=== PATIENT | male | born 1970 | race Caucasian/White ===

== ENCOUNTER 2016-11-14 18:01 | Observation (INO) | payer BC, OTHER ==
[2016-11-14] MEDS ORDERED: METOCLOPRAMIDE HCL 5 MG/ML VIAL IV ONE (18:23)
[2016-11-14] MEDS ORDERED: diphenhydrAMINE HCL 50 MG/ML VIAL IV ONE (18:23)
[2016-11-14] MEDS ORDERED: NORMAL SALINE 1,000 ML IV ONE ×2 (18:23→22:13)
[2016-11-14] MEDS ORDERED: METOCLOPRAMIDE HCL 5 MG/ML VIAL ONE (18:31)
--- NOTE | 2016-11-14 18:31 | ERNOTE ---
<Jean Marie Buchanan - Last Filed: 11/14/16 19:24> Abdominal HPI - General Chief Complaint: Abdominal Pain Time Seen by Provider: 11/14/16 18:19 Source: patient, family Exam Limitations: no limitations - Immun/Allergies/Home Medications Immunizatons: IMMUNIZATION HX Immunizations Up to Date Yes Allergies/Adverse Reactions: Allergies morphine Allergy (Unknown, Verified 11/14/16 18:16) Hives Home Medications: HOME MEDICATIONS Lisinopril/Hydrochlorothiazide [Lisinopril-Hctz 20-12.5 mg Tab] 1 each PO DAILY 11/14/16 [Last Taken Unknown] Ranitidine HCl [Zantac] 150 mg PO BID 11/14/16 [Last Taken Unknown] - History of Present Illness Narrative: Patient presents with generalized abdominal pain although the focus appears to be dropping into the lower abdomen at this juncture. Patient states the onset of symptoms was yesterday. Describes it as moderately to severe in intensity and somewhat cramping. Denies any nausea vomiting or diarrhea. Further states he has never had any abdominal surgery of any kind Timing: constant, getting worse Quality: moderate Activities at Onset: none Associated Symptoms: Present: denies symptoms Prior Abdominal Problems: Present: none Review of Systems - Review of Systems Constitutional: Present: See HPI EYE: Present: no symptoms reported ENT: Present: no symptoms reported Respiratory: Present: no symptoms reported Cardiology: Present: no symptoms reported Gastrointestinal/Abdominal: Present: See HPI, abdominal pain Genitourinary: Present: no symptoms reported Musculoskeletal: Present: no symptoms reported Skin: Present: no symptoms reported Neurological: Present: no symptoms reported Endocrine: Present: no symptoms reported Hematologic/Lymphatic: Present: no symptoms reported Psych: Present: no symptoms reported - Patient's Past Medical History Patient History - Medical: No pertinent hx Patient History - Cardiac/Respiratory: Hypertension Patient History - Cancer: No Hx of Cancer Patient History - Surgical Procedures: Back Surgery - Social History Living Situations: home Psych History: No pertinent hx Smoking Status: Never smoker Patient requests Smoking Cessation Consult: No Initiate information on Smoking Cessation: No - Immunizations Immunizations Up to Date: Yes Physical Exam - Physical Exam General Appearance: Present: wd/wn, alert, moderate distress Eye Exam: Normal inspection: bilateral, PERRL: bilateral Ears, Nose, Throat: Present: normal ENT inspection, H, normal pharynx Neck: Present: normal inspection, nontender Respiratory: Present: no respiratory distress, normal breath sounds, no accessory muscle use, chest nontender, lungs clear Cardiovascular/Chest: Present: regular rate, rhythm, no murmur, normal peripheral pulses Gastrointestinal/Abdominal: Present: soft, no organomegaly, tenderness, abnormal bowel sounds - diminished Rectal Exam: Present: deferred Back Exam: Present: normal inspection, normal range of motion Extremity Exam: Present: normal inspection, non-tender, no edema, normal range of motion Neurological Exam: Present: alert, oriented, normal mood/affect Skin Exam: Present: normal color, warm/dry Lymphatic Exam: Present: no adenopathy ED Progress - Vital Signs Vital Signs: Vital Signs 11/14/16 18:11 Temperature 36.8 C Pulse Rate 97 Respiratory 20 Rate Blood Pressure 143/92 O2 Sat by Pulse 97 Oximetry - Progress/Reassessment Chief Complaint: Abdominal Pain - Transfer of Care Physician Sign Out: Jean Marie Buchanan Receiving Physician: Danae Hernández Departure - Departure Clinical Impression: Colitis Abdominal pain Qualifiers: Abdominal location: generalized Qualified Code(s): R10.84 - Generalized abdominal pain Disposition: [facility] Condition: Good <Danae Hernández - Last Filed: 11/14/16 23:20> Abdominal HPI - Immun/Allergies/Home Medications Immunizatons: IMMUNIZATION HX Immunizations Up to Date Yes - Family History Mother Family History - Cancer: Colon Father Family History - Cardiac/Respiratory: Myocardial Infarction ED Progress - Results and Orders Patient's Lab Results:: I have reviewed the patient's lab results. - Vital Signs Patient's Vital Signs:: I have reviewed the patient's vital signs. Vital Signs: Vital Signs 11/14/16 18:11 Temperature 36.8 C Pulse Rate 97 Respiratory 20 Rate Blood Pressure 143/92 O2 Sat by Pulse 97 Oximetry - X-Ray X-Ray #1 X-Ray: abdomen - stool retention, non specific bowel gas pattern Interpretation: Reviewed by me - CT/Ultrasound CT/Ultrasound Narrative: CT abdomen and pelvis: non specific bowel wall thickening in duodenum and terminal ileum, pancreatic findings c/w pancreatitis, appendix not visualized - Progress/Reassessment Progress Note-Subjective: 11/14/16 19:59 patient has minimal pain, tolerating po contrast 11/14/16 21:45 discussed results with patient and 06/21/17 21:[address] Brooks, suggested admission with IV fluids, start cipro and flagyl , repeat labs in the morning 11/14/16 22:00 discussed plan with patient , agrees to admission 11/14/16 22:05 discussed with Unique Marte,rudiay to admit
[2016-11-14 18:42] LABS: Hematocrit 42.4 % (42.0-52.0); Hemoglobin 14.6 gm/dL (13.5-18.0); Mean Cell Volume 88.9 fl (78-100); Mean Corpuscular Hemoglobin 30.6 pg (27-31); Mean Corpuscular Hgb Conc 34.4 g/dl (32-36); Mean Platelet Volume 9.4 fl (6.0-9.5); Neutrophil # 15.7 K/mm3 (1.3-6.0); Neutrophil % 80.9 % (42-75.0); Platelet Count 253 K/mm3 (150-450); Red Blood Count 4.77 M/mm3 (4.7-6.0); Red Cell Distribution Width 12.9 % (11.5-14.0); White Blood Count 19.5 K/mm3 (4.0-10.5)
[2016-11-14 18:52] LABS: Urine Bilirubin Negative (NEGATIVE); Urine Blood Negative /ul (NEGATIVE); Urine Ketone 5 mg/dL (NEGATIVE); Urine Nitrite Negative (NEGATIVE); Urine Protein 15 mg/dL (NEGATIVE); Urine Specific Gravity >=1.030 SP.GR. (1.005-1.030); Urine Urobilinogen Normal (NORMAL)
[2016-11-14 18:56] LABS: Anion Gap 16.2 mmol/L (6.8-13.8); BUN/Creatinine Ratio 15.2 (9.0-21.6); Bilirubin, Total 0.8 mg/dL (0.0-1.1); Ca. Corrected For Albumin 9.3 mg/dL (8.4-10.2); Calcium * 9.6 mg/dL (7.9-10.9); Carbon Dioxide 24.3 mmol/L (24-32.6); Magnesium 1.8 mg/dL (1.2-2.8); Potassium 3.5 mmol/L (3.4-4.6); Total Protein 8.5 gm/dL (6.2-8.2)
[2016-11-14 19:10] LABS: Urine Appearance Clear; Urine Bacteria 1+; Urine Color Yellow; Urine Mucus Many - 3+; Urine RBC 0-5 /hpf (0-5); Urine WBC 0-5 /hpf (0-5)
[2016-11-14] MEDS ORDERED: DIATRIZOATE MEGLU/DIATRIZO SOD 30 ML BTL PO ONE (19:24)
[2016-11-14] MEDS ORDERED: DIATRIZOATE MEGLU/DIATRIZO SOD 30 ML BTL ONE ×2 (19:25→19:28)
[2016-11-14] MEDS ORDERED: PROMETHAZINE HCL 5 MG in DEXTROSE 5 % IN WATER 50 ML IV PRN ×2 (22:12)
[2016-11-14] MEDS ORDERED: KETOROLAC TROMETHAMINE 30 MG/ML VIAL IV PRN (22:12)
[2016-11-14] MEDS ORDERED: ACETAMINOPHEN 500 MG TABLET PO PRN (22:12)
[2016-11-14] MEDS ORDERED: ONDANSETRON HCL/PF 2 MG/ML VIAL IV PRN (22:12)
[2016-11-14] MEDS ORDERED: HYDROmorphone HCL 1 MG/ML DISP.SYRIN IV PRN ×2 (23:05→23:08)
[2016-11-14] MEDS ORDERED: PROMETHAZINE HCL 12.5 MG in DEXTROSE 5 % IN WATER 50 ML IV ONE ×2 (23:05)
--- NOTE | 2016-11-14 23:05 | HP ---
Chief Complaint - Chief Complaint Date of Service: 11/14/16 Time of Service: 23:05 Chief Complaint: abdominal pain History of Present Illness: Gabriel is a 45 year old male with a PMH of HTN and GERD who presented to the ER with c/o abdominal pain x1 day. denies n/v/d. denies prior history of diverticulitis or colitis. denies any abdominal surgeries or procedures. ER eval revealed WBC 19.5 with 80.9 neutrophils. ab xray showed stool retention and non-specific bowel gas pattern. CT ab/pelvis showed non specific bowel wall thickening in duodenum and terminal ileum, pancreatic findings c/w pancreatitis, appendix not visualized - although lipase wnl. ERP spoke with gen surgery who recommended admission for IV fluids, start IV cipro/flagyl and recheck labs in am. Patient to be admitted for abdominal pain pending further work up. - Patient's Past Medical History Patient History - Medical: GERD - diagnosed 1 month ago (09/2016) - on zantac bid. Patient History - Cardiac/Respiratory: Hypertension - for past 10 years - on lisinopril/HCTZ Patient History - Cancer: No Hx of Cancer Patient History - Surgical Procedures: Back Surgery - Family History Mother Family History - Medical: No pertinent hx Family History - Cardiac/Respiratory: No pertinent hx Family History - Cancer: Colon Father Family History - Medical: No pertinent hx Family History - Cardiac/Respiratory: Myocardial Infarction - Social History Living Situations: home Psych History: No pertinent hx Smoking Status: Never smoker Patient requests Smoking Cessation Consult: No Initiate information on Smoking Cessation: No Alcohol Use: other - heavy etoh use 20 years ago for 5 years; current etoh use is 2-3 beers per 1-2 months at maximum per patient Drug Use: none - Immunizations Immunizations Up to Date: Yes Review Of Systems (GEN) - Review of Systems Generalized/Overall Review: Present: Chills, Malaise, Fatigue. Absent: Fever EENTM: Present: No Symptoms Reported Respiratory: Present: No Symptoms Reported Cardiac: Present: Chest Pain - describes as more of reflux-like symptoms Abdominal: Present: Abdominal Pain. Absent: Nausea, Vomiting, Hematemesis, Constipation, Diarrhea, Melena, Bright blood from rectum Genitourinary: Present: No Symptoms Reported Musculoskeletal: Present: No Symptoms Reported Neurological: Present: No Symptoms Reported Skin: Present: No Symptoms Reported Endocrine: Present: No Symptoms Reported Misc: All systems neg except as marked Allergies/Adverse Reactions: Allergies Allergy/AdvReac Type Severity Reaction Status Date / Time morphine Allergy Unknown Hives Verified 11/14/16 18:16 Home Medications: HOME MEDICATIONS Lisinopril/Hydrochlorothiazide [Lisinopril-Hctz 20-12.5 mg Tab] 1 each PO DAILY 11/14/16 [Last Taken 11/14/16] Ranitidine HCl [Zantac] 150 mg PO BID 11/14/16 [Last Taken 11/14/16] Exam - Exam Vital Signs: Vital Signs - Last Taken Temp 36.6 C 11/14/16 22:20 Pulse 92 11/14/16 22:20 Resp 16 11/14/16 22:20 BP 138/83 11/14/16 22:20 Pulse Ox 99 11/14/16 22:20 Constitutional: Present: Alert, Oriented x3, Cooperative, No distress ENT Exam: Present: hearing grossly normal Eye Exam: bilateral eye: normal inspection Neck: Present: full range of motion, supple Back Exam: Present: normal inspection, no vertebral tenderness Breasts: Present: Exam deferred Respiratory: Present: lungs clear, normal breath sounds, no respiratory distress Cardiovascular/Chest: Present: normal peripheral pulses, regular rate, rhythm, no JVD, no murmur Peripheral Pulses: dorsalis-pedis (R): 2+, dorsalis-pedis (L): 2+, radial (R): 2 +, radial (L): 2+ Abdomen: Present: soft, obese, tender - diffuse abdominal tenderness to palpation, worse on left side, guarding /Rectal: Present: Exam deferred Extremity: Present: non-tender, normal inspection, no pedal edema Skin Exam: Present: normal color, warm/dry, no cyanosis Diagnostic Studies: Laboratory Results Laboratory Tests 11/14/16 18:36 WBC 19.5 H Hgb 14.6 Hct 42.4 Plt Count 253 Neutrophils % 80.9 H Potassium 3.5 Creatinine 0.99 Lactic Acid, Venous 1.6 AST 18 ALT 38 Lipase 136 11/14/16 Technique: Abdominal series (4 views) Impression: Stool retention with a nonobstructed bowel gas pattern. Scattered colonic air-fluid levels; correlate for loose stools. 11/14/16 CT Abdomen and Pelvis with contrast IMPRESSION: Findings compatible with pancreatitis. No evidence of peripancreatic fluid collection. Bowel wall thickening involving the duodenum may be reactive to the pancreas. Nonspecific bowel wall thickening involving the terminal ileum. Correlate for an underlying infectious or inflammatory process. No evidence of bowel obstruction. Assessment/Plan - Narrative Narrative: Abdominal pain - colitis vs pancreatitis vs other etiology - Start antibiotics (wbc elevated with abdominal pain) - Cipro 400 mg iv q 12 hours - Day #1 - Flagyl 500 mg iv q 8 hours - Day #1 - Bowel rest for now - npo with ice chips prn - IV fluids: D5 NS with 20 KCl at 125 ml/hr. - Protonix 40 mg daily for GI protection given abdominal pain - IV daily ordered since patient is NPO. - Pain medications ordered - pt states has had dilaudid in the past and done ok - no toradol as it tends to irritate the gut - recheck labs in the am. - consult Dr Brooks for recommendations - done by ERP prior to admission HTN - Vital signs q 4 hours GERD - recently diagnosed within the last month - currently on zantac bid at home - place on protonix iv while npo. Code status: full code VTE: lovenox GI Proph: protonix iv. - Assessment/Plan (1) Abdominal pain Problem: Acute Qualifiers: Abdominal location: unspecified location Qualified Code(s): R10.9 - Unspecified abdominal pain (2) HTN (hypertension) Problem: Chronic Qualifiers: Hypertension type: essential hypertension Qualified Code(s): I10 - Essential (primary) hypertension (3) GERD (gastroesophageal reflux disease) Problem: Chronic Qualifiers: Esophagitis presence: esophagitis presence not specified Qualified Code(s) : K21.9 - Gastro-esophageal reflux disease without esophagitis
[2016-11-14] MEDS ORDERED: PROMETHAZINE HCL 12.5 MG in DEXTROSE 5 % IN WATER 50 ML IV PRN ×2 (23:06)
[2016-11-14] MEDS ORDERED: HYDROmorphone HCL 1 MG/ML DISP.SYRIN IV ONE (23:07)
[2016-11-14] MEDS ORDERED: diphenhydrAMINE HCL 50 MG/ML VIAL IV PRN (23:09)
[2016-11-14] MEDS ORDERED: PANTOPRAZOLE SODIUM 40 MG in NORMAL SALINE 100 ML IV SCH (23:15)
[2016-11-14] MEDS: POTASSIUM CHLORIDE 20 MEQ in DEXTROSE 5%-NORMAL SALINE 990 ML IV SCH (23:15)
[2016-11-14] MEDS: CIPROFLOXACIN LACTATE/D5W 400 MG/200 ML BAG IV SCH (23:25)
[2016-11-15] MEDS: metroNIDAZOLE/SODIUM CHLORIDE 500 MG/100 ML BAG IV SCH ×3 (00:40→14:29)
[2016-11-15 06:08] LABS: Hematocrit 36.5 % (42.0-52.0); Hemoglobin 12.4 gm/dL (13.5-18.0); Mean Cell Volume 90.1 fl (78-100); Mean Corpuscular Hemoglobin 30.6 pg (27-31); Mean Platelet Volume 9.4 fl (6.0-9.5); Neutrophil # 10.3 K/mm3 (1.3-6.0); Neutrophil % 71.7 % (42-75.0); Platelet Count 196 K/mm3 (150-450); Red Blood Count 4.05 M/mm3 (4.7-6.0); White Blood Count 14.3 K/mm3 (4.0-10.5)
[2016-11-15 06:11] LABS: Total Cells Counted 100
[2016-11-15 06:23] LABS: Albumin * 3.2 gm/dl (3.4-5.0); Anion Gap 13.6 mmol/L (6.8-13.8); BUN/Creatinine Ratio 13.6 (9.0-21.6); Bilirubin, Total 0.9 mg/dL (0.0-1.1); Ca. Corrected For Albumin 9.1 mg/dL (8.4-10.2); Calcium * 8.8 mg/dL (7.9-10.9); Carbon Dioxide 25.9 mmol/L (24-32.6); Potassium 3.5 mmol/L (3.4-4.6); Total Protein 7.2 gm/dL (6.2-8.2)
[2016-11-15 07:13] LABS: Eosinophil 1 % (0-3); Lymphocyte 11 % (20-51); Monocyte 9 % (0-9); Neutrophil 79 % (42-75); Neutrophil # 11.3 K/mm3 (1.3-6.0); Platelet Estimate Normal (NORMAL); RBC Morphology Normal (NORMAL)
[2016-11-15] MEDS ORDERED: HYDROCHLOROTHIAZIDE 12.5 MG CAPSULE PO SCH (09:00)
[2016-11-15] MEDS ORDERED: LISINOPRIL 20 MG TABLET PO SCH (09:00)
[2016-11-15] MEDS: CIPROFLOXACIN LACTATE/D5W 400 MG/200 ML BAG IV SCH (09:45)
[2016-11-15] MEDS: POTASSIUM CHLORIDE 20 MEQ in DEXTROSE 5%-NORMAL SALINE 990 ML IV SCH (12:51)
[2016-11-15 14:12] VITALS: BP 130/79
--- NOTE | 2016-11-15 16:15 | DS ---
(1) Abdominal pain Diagnosis(s): Etiology not determined. Problem: Resolved Qualifiers: Abdominal location: generalized Qualified Code(s): R10.84 - Generalized abdominal pain Description of Stay: He was kept at NPO status with IV Protonix and Cipro/Flagyl. Surgical consultation was obtained with findings of no peritoneal signs on exam or discrete findings. WBC decreased. ESR and CRP were elevated, however patient's pain resolved and he had multiple loose stools from the gastroview. Records from patient's recent EGD (esophagitis/gastritis, clotest negative) and normal colonoscopy (only fair prep) received and reviewed. Diet was advanced to regular which he tolerated without return of pain. Ambulated independently and desired discharge. Procedures Performed: none Discharge Disposition: Home self care Disposition: Home self-care Condition: Good Discharge Activity: Activity as tolerated Discharge Diet: General/regular food Referrals: Aleksandr Ospina MD [Primary Care Provider] - Problem Oriented Discharge Instructions to Patient/Family: Gastroesophageal Reflux Disease, Adult, [id number] Additional Patient Instructions (free text): Follow up with Dr Ospina next week (suggest repeat WBC, CRP, potassium) Prescriptions (Any new or edited meds): Pantoprazole Sodium [Protonix] 40 mg PO DAILY #30 tab Complete Home Medications List: Complete Home Medication List: Lisinopril/Hydrochlorothiazide [Lisinopril-Hctz 20-12.5 mg Tab] 1 each PO DAILY 11/14/16 Ranitidine HCl [Zantac] 150 mg PO BID 11/14/16 Pantoprazole Sodium [Protonix] 40 mg PO DAILY #30 tab 11/15/16
--- NOTE | 2016-11-15 18:15 | CONS ---
[facility] - General Date of Service: 11/15/16 - Patient seen 0900 and 1545 Narrative: He was evaluated in the ER where he presented with mid abdominal pain of 2 days duration. He was found to have elevated WBC with abdominal tenderness and several CT findings suggesting inflammation near the pancreas and thickened terminal ileum--appendix not seen. Lipase was normal. He was placed in observation for IV antibiotics and serial exams. Source: patient, family Exam Limitations: no limitations, other - not a precise historian - History of Present Illness Initial Comments: He states that since he had an EGD and colonoscopy last month at [facility] he "has not been the same" but yesterday he was having mid abdominal pain that doubled him over and he couldn't take it. His had to help bathe him. The pain was mid abdominal and possibly crampy. Possibly worse before a bowel movement or better after passing gas. He was having vomiting. He did not supply the history to the ER or [facility] that he had had EGD/ Colonoscopy which was done because his mother had colon cancer n her 50's. He says the colon exam was normal and they told him his stomach was irritated and started him on Zantac. He states he did not have pain after the endoscopy "but hasn't been right since " He cannot be more specific than that. He has had multiple loose stools from the gastroview given for the CT. No N/V. Voiding OK. He currently denies abdominal pain "just tight" Timing/Duration: other - has been "present since his endoscopy" but got worse since 11/14/16 Modifying Factors - (Worsens): Reports: movement Modifying Factors - (Improves): Reports: immobilization, rest Associated Symptoms: other - no fever or chills Allergies/Adverse Reactions: Allergies morphine Allergy (Unknown, Verified 11/14/16 18:16) Hives Home Medications: Home Medications Medication Instructions Recorded Last Taken Lisinopril/Hydrochlorothiazide 1 each PO DAILY 11/14/16 11/14/16 [Lisinopril-Hctz 20-12.5 mg Tab] Ranitidine HCl [Zantac] 150 mg PO BID 11/14/16 11/14/16 - Patient's Past Medical History Patient History - Medical: GERD - diagnosed 1 month ago (09/2016) - on zantac bid. , Other - he was on Allopurinol for gout Patient History - Cardiac/Respiratory: Hypertension - for past 10 years - on lisinopril/HCTZ Patient History - Cancer: No Hx of Cancer Patient History - Surgical Procedures: Back Surgery, Colonoscopy, EGD Patient History - Other: None - Family History Mother Family History - Medical: No pertinent hx Family History - Cardiac/Respiratory: No pertinent hx Family History - Cancer: Colon Father Family History - Medical: No pertinent hx Family History - Cardiac/Respiratory: Myocardial Infarction - Social History Living Situations: home Psych History: No pertinent hx Smoking Status: Never smoker Have you smoked in the past 12 months: No Do you dip or chew tobacco: No Smoking Stop Date: 11/14/89 Patient requests Smoking Cessation Consult: No Initiate information on Smoking Cessation: No Alcohol Use: other - heavy etoh use 20 years ago for 5 years; current etoh use is 2-3 beers per 1-2 months at maximum per patient Drug Use: none - Immunizations Immunizations Up to Date: Yes Procedures OTHER SKIN & SUBQ I D (08/02/09) Medications - Medications Current Medications: Current Medications Hydrochlorothiazide (Microzide) 12.5 mg PO DAILY CORINNE Stop: 12/15/16 09:01 Last Admin: 11/15/16 09:46 Dose: 12.5 mg Ciprofloxacin/Dextrose (Cipro) 400 mg in 200 mls @ 200 mls/hr IV Q12H CORINNE PRN Reason: Protocol Stop: 12/14/16 22:16 Last Admin: 11/15/16 09:45 Dose: 200 mls/hr Metronidazole (Flagyl) 500 mg in 100 mls @ 100 mls/hr IV Q8H CORINNE PRN Reason: Protocol Stop: 12/14/16 22:16 Last Admin: 11/15/16 14:29 Dose: 100 mls/hr Potassium Chloride 20 meq/ (Dextrose/Sodium Chloride) 1,000 mls @ 125 mls/hr IV .Q8H CORINNE Stop: 12/14/16 23:01 Last Admin: 11/15/16 12:51 Dose: 125 mls/hr Pantoprazole Sodium 40 mg/ (Sodium Chloride) 100 mls @ 400 mls/hr IV HS CORINNE Stop: 12/14/16 23:16 Last Infusion: 11/15/16 02:30 Dose: Infused Lisinopril (Zestril) 20 mg PO DAILY CORINNE Stop: 12/15/16 09:01 Last Admin: 11/15/16 09:46 Dose: 20 mg Review of Systems - Review of Systems Generalized/Overall Review: Present: Malaise EENTM: Present: No Symptoms Reported Respiratory: Present: No Symptoms Reported Cardiac: Present: No Symptoms Reported Abdominal: Present: Vomiting, Abdominal Pain Genitourinary: Present: No Symptoms Reported Musculoskeletal: Present: No Symptoms Reported Neurological: Present: No Symptoms Reported Skin: Present: No Symptoms Reported Physical Examination - Exam Narrative: He was in the bathroom when I entered the room. I initially interviewed the . He ambulates with IV pole without difficulty and appears in no distress. Moves into bed easily. Vital Signs: Vital Signs - Last Taken Temp 37 C 11/15/16 0745 Pulse 79 11/15/16 " Resp 20 11/15/16 " BP 136/83 11/15/16 " Pulse Ox 98 RA 11/15/16 " O2 Oxygen Delivery Method Room Air Constitutional: Present: Alert, Oriented x3, Cooperative, Well developed, Well nourished, No distress, Other - not a precise historian, used specific guided questions to cover/elicit all ROS/history ENT Exam: Present: normal ENT inspection Eye Exam: bilateral eye: normal inspection Neck: Present: normal inspection Respiratory: Present: no respiratory distress Cardiovascular/Chest: Present: regular rate, rhythm Abdomen: Present: other - Obese, protuberant, tympanitic without percussion tenderness. No hernias. Diffusely MILDLY tender with no guarding or rebound. NO specific point tenderness. /Rectal: Present: Exam deferred Extremity: Present: normal range of motion, normal inspection Skin Exam: Present: normal color Neurologic: Present: commercial credit analyst II-XII nml as tested, no motor/sensory deficits Appearance: Present: appropriate appearance Eye contact: Present: cooperative, good eye contact Thoughts: Present: normal thought pattern - Results and Findings: Lab/Microbiology results last 24 hrs: Abnormal/Pending Laboratory Last 24 HRS 11/15/16 11/15/16 11/15/16 09:00 05:40 05:40 WBC RBC Hgb Hct Immature Gran % (Auto) Immature Gran # (Auto) Neutrophils % (Manual) Lymphocytes % Lymphocytes % (Manual) Monocytes % Neutrophils # Neutrophils # (Manual) Monocytes # Monocytes # (Manual) ESR 68 H C-Reactive Prot, Quant 11.4 H Albumin 3.2 L 11/15/16 05:40 WBC 14.3 H D RBC 4.05 L Hgb 12.4 L Hct 36.5 L Immature Gran % (Auto) 0.60 H Immature Gran # (Auto) 0.09 H Neutrophils % (Manual) 79 H Lymphocytes % 15.4 L Lymphocytes % (Manual) 11 L Monocytes % 11.0 H Neutrophils # 10.3 H Neutrophils # (Manual) 11.3 H Monocytes # 1.6 H Monocytes # (Manual) 1.3 H ESR C-Reactive Prot, Quant Albumin CT scan showed ? inflammation near head of pancreas and possible thickened terminal ileum. No free fluid. Appendix not seen. Stool noted on initial plain abdominal xray - Assessments/Findings (1) Abdominal pain Diagnosis(s): Abdominal pain of unknown etiology. No peritoneal signs. CT scan findings of inflammation near head of pancreas not supported by normal lipase. Does not appear to be appendicitis or diverticulitis. The terminal ileum is not markedly abnormal. He had a recent EGD so penetrating or perforating ulcer would be unlikely. His pain is largely resolved and his WBC has decreased. The patient is complaining that he wants to eat. Will need to get the records from his EGD/colonoscopy. He could have a subtle mesenteric injury from his colonoscopy, however any trauma from that should have become apparent before now. Will advance diet. Obtain ESR/CRP. Will follow for serial exams. Problem: Resolved Qualifiers: Abdominal location: generalized Qualified Code(s): R10.84 - Generalized abdominal pain
== END 2016-11-15 17:22 | disposition home or self-care (01) ==
LOC: ER 18:01 → MS 22:08 → UNDOADMOB 22:08
PROVIDERS: ADMIT Nurse Practitioner Critical Care Medicine; ATTEND Internal Medicine
DX: R10.84 Generalized abdominal pain (principal); I10 Essential (primary) hypertension; K21.9 Gastro-esophageal reflux disease without esophagitis
CPT/HCPCS: 36415; 74020; 74177; 80053; 81001; 82150; 83605; 83690; 83735; 85007; 85025; 85652; 86140; 96365; 96366; 96367; 96374; 96375; 99284; G0378